=== PATIENT | female | born 1980 | race Caucasian/White ===

== ENCOUNTER → 2020-07-12 | Outpatient (CLI) | payer OTHER ==
[2020-07-12 15:33] LABS: HCT 42.2 % (37.2-46.3); HGB 13.5 g/dL (12.0-15.0); MCH 31.7 pg (27.0-32.0); MCV 99.1 fL (80.0-97.0); Mean Platelet Volume 12.2 fL (9.5-12.2); Platelet Count 205 X 10*3/uL (140-440); RBC 4.26 X 10*6/uL (4.10-5.20); RDW 11.7 % (11.5-14.5); WBC 5.06 X 10*3/uL (4.50-10.00)
[2020-07-12 18:12] LABS: African American GFR (CKD) 106.1 (60.0-200.0); Albumin 4.6 g/dL (3.80-4.90); Albumin/Globulin Ratio 2.88 (1.60-3.17); Anion Gap 8.2 mmol/L (4.00-12.00); BUN/Creat Ratio 13.75 Ratio (12.00-20.00); Calcium 9.3 mg/dL (8.7-10.3); Carbon Dioxide 27.8 mmol/L (21.6-31.8); Globulin 1.6 g/dL (1.6-3.3); Non-African American GFR(CKD) 91.6 (60.0-200.0); Potassium 4.3 mmol/L (3.5-5.5); Total Bilirubin 0.7 mg/dL (0.2-1.2); Total Protein 6.2 g/dL (6.2-8.2)
[2020-07-12 18:19] LABS: Prolactin 9.7 ng/mL (2.8-29.2); T4, Free (Free Thyroxine) 1.4 ng/dL (0.80-1.80)
[2020-07-12 19:37] LABS: Thyroid Peroxidase Antibodies <28.0 U/mL (0.0-60.0)
[2020-07-13 02:01] LABS: ACTH 7.03 pg/mL (0.00-45.99)
== END | disposition home or self-care (01) ==
LOC: LABWHC1 09:48
PROVIDERS: ATTEND Internal Medicine Endocrinology, Diabetes & Metabolism
DX: R55 Syncope and collapse (principal)
CPT/HCPCS: 36415; 80053; 82024; 82533; 84146; 84439; 84445; 84480; 85027; 86376